=== PATIENT | male | born 1950 | race Caucasian/White ===

== ENCOUNTER → 2024-03-12 09:35 | Outpatient (REF) | payer MEDICARE, OTHER, SELFPAY | LOC: HWRCS 09:35 | PROVIDERS: ATTENDING PHYSICIAN Internal Medicine; FAMILY PHYSICIAN Family Medicine | DX: I77.810 Thoracic aortic ectasia (principal) | CPT/HCPCS: 93306 ==

== ENCOUNTER → 2024-04-29 08:23 | Outpatient (REF) | payer MEDICARE, OTHER, SELFPAY | LOC: MRI 3T 08:23 | PROVIDERS: ATTENDING PHYSICIAN Specialist; FAMILY PHYSICIAN Family Medicine | DX: C61 Malignant neoplasm of prostate (principal) | CPT/HCPCS: 72197; A9575 ==

== ENCOUNTER → 2024-07-02 18:56 | Outpatient (REF) | payer MEDICARE, OTHER, SELFPAY | LOC: MRI 3T 18:56 | PROVIDERS: ATTENDING PHYSICIAN Otolaryngology; FAMILY PHYSICIAN Family Medicine | DX: H93.13 Tinnitus, bilateral (principal); H93.A3 Pulsatile tinnitus, bilateral | CPT/HCPCS: 70549; A9585 ==